=== PATIENT | female | born 1960 | race Hispanic/Latino ===

== ENCOUNTER 2018-01-23 17:39 | Emergency (ER) | payer SELFPAY ==
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
[2018-01-23 18:10] VITALS: O2SAT 98
[2018-01-23] MEDS ORDERED: KETOROLAC TROMETHAMINE INJ 60 MG/2 ML VIAL IM ONE (18:11)
--- NOTE | 2018-01-23 18:43 | RAD ---
EXAM: Pelvis CLINICAL INDICATION: Trauma, pain COMPARISON: There is no previous study for comparison. IMPRESSION: A single view of the pelvis reveals an intact bony ring. There are no fractures or bone lesions. The hip joints, SI joints, and pubic symphysis are unremarkable. IMPRESSION: Negative single view of the pelvis. Electronically signed by: Cameron Jaimes MD 01/23/2018 6:42 PM CDT
--- NOTE | 2018-01-23 18:45 | RAD ---
EXAM: Lumbar Spine 3 Views CLINICAL INDICATION: Low back pain. COMPARISON: There is no previous study for comparison. FINDINGS: Three views of the lumbar spine reveal no fracture, compression deformity, or subluxation. The intervertebral disk spaces are preserved. The osseous structures appear intact and unremarkable. IMPRESSION: Negative lumbar spine radiographs. Electronically signed by: Cameron Jaimes MD 01/23/2018 6:43 PM CDT
[2018-01-23 19:06] VITALS: BP 160/93; TEMP 98.1
== END 2018-01-23 19:05 | disposition home or self-care (01) ==
LOC: ER 17:39
DX: S39.92XA Unspecified injury of lower back, initial encounter (principal); I10 Essential (primary) hypertension; Z79.899 Other long term (current) drug therapy; V83.4XXA Person injured while boarding or alighting from special industrial vehicle, initial encounter; Y92.812 Truck as the place of occurrence of the external cause
CPT/HCPCS: 72100; 72170; J1885